=== PATIENT | female | born 1965 | race Caucasian/White ===

== ENCOUNTER 2025-03-09 10:11 | Inpatient (IN) ==
--- NOTE | 2025-03-09 10:21 | Emergency Department Note ---
Impression & Plan Chest pain, ST elevation (STEMI) myocardial infarction ED Provider Note HISTORY OF PRESENT ILLNESS: Patient is a 60-year-old female presenting with chest pain. Patient was alerted as a heart alert prehospital. Patient reportedly was having what felt like indigestion for most of the night. She woke up today and was still having some chest discomfort, but her chest pain significantly worsened acutely while at work about 1 hour prior to arrival. She called 911. On EMS arrival, the patient reportedly was short of breath and diaphoretic. They gave her 324 mg of aspirin, 900 cc of fluid and a total of 150 mcg of IV fentanyl prehospital. On arrival to the ER, the patient reports that her pain is still a 10 out of 10. She describes it as an intense pressure and states it radiates into her back. Denies any history of high blood pressure, high cholesterol or cardiac stents. She does smoke daily. She denies any nausea or vomiting. She is not on any anticoagulation or antiplatelet therapy. ROS: as above PHYSICAL EXAM: Constitutional: Patient appears in no acute distress. HENT: Head: Normocephalic and atraumatic. Eyes: EOMI, PERRL Mouth/Throat: Mucous membranes moist. Neck: Trachea midline. Neck supple. Cardiovascular: RRR, No murmurs, rubs or gallops. Intact distal pulses. Pulmonary/Chest: No respiratory distress. Breath sounds clear and equal bilaterally. No wheezes or rales. Abdominal: Abdomen soft, no tenderness, rebound or guarding. Musculoskeletal: No edema, tenderness or deformity noted. Skin: Warm and dry. No rash, erythema, pallor or cyanosis Psychiatric: Appropriate mood and affect for situation. Neurological: Alert and keenly responsive. CN II-XII grossly intact, moving all extremities equally and fully. MDM: - Vitals signs showed hypertension - History obtained via patient. History as above. - Chronic conditions affecting care: None - Differential diagnoses include, but are not limited to: Acute coronary syndrome; pulmonary embolism; dissection; tension pneumothorax; esophageal rupture; pneumonia - Order placed for continuous cardiac monitoring. At this time, monitor showed rate of 70 bpm with normal sinus rhythm, per my interpretation. - External medical records reviewed. - EKG image transmitted from EMS that was received at 9:47 AM interpreted by myself showed normal sinus rhythm. Rate 76 bpm. Noted have a left bundle b ranch block with significant ST elevations in the lateral leads. Heart alert was called off of this EKG. - Did send EKG to python engineer, Dr. Cárdenas, who presented to bedside on patient's arrival. - EKG image interpreted by myself showed normal sinus rhythm. Rate 89 bpm. QT 398. Noted to have a left bundle branch block. Significant artifact at baseline. Lateral ST elevations have improved slightly from the prehospital EKG. - IV access obtained. Laboratory workup sent. Patient left for the Board Certified Music Therapist prior to chest x-ray being obtained. - Given patient's symptoms and presumed new LBBB, patient taken to optical laboratory technician with python engineer. - Discussed case with hospitalist for admission post optical laboratory technician. - Patient to be [facility] to [facility] after Board Certified Music Therapist. I have personally spent 31 minutes of critical care time in the direct management of this patient. This includes bedside care, interpretation of diagnostic studies, and testing, discussion with consultants, patient, and family members, and other required patient management activities. This 31 minutes is in excess of all separately billable procedures. ASSESSMENT AND PLAN: Diagnosis: chest pain; STEMI Plan: to optical laboratory technician Past Med/Surg History Problem List (Updated 03/09/25 @ 10:29 by Yu Buenrostro MD) ST elevation (STEMI) myocardial infarction (Acute) Chest pain (Acute) Acute [facility] Lumbar radiculopathy Social History Smoking Status: Current every day smoker Tobacco Type: Cigarettes Feels Safe at Home: Yes Results & Data (ED) Vital Signs Vital Signs - 24 hr 03/09/25 10:13 03/09/25 10:17 03/09/25 10:22 Temperature 36.4 C L Temperature Source Oral Pulse Rate 83 Respiratory Rate 22 Respiratory Effort / Characteristics Non-Labored Spontaneous Respiratory Pattern Regular Blood Pressure 190/130 H 190/130 H Blood Pressure Mean 150 155 Oxygen Delivery Method Room Air Room Air Sepsis Recent Fever Within 48 Hours No Sepsis New/Unexplained Change in Mental Status N/A Sepsis Action Taken by Nursing No Action Required 03/09/25 10:23 Temperature Temperature Source Pulse Rate 71 Respiratory Rate Respiratory Effort / Characteristics Respiratory Pattern Blood Pressure Blood Pressure Mean Oxygen Delivery Method Sepsis Recent Fever Within 48 Hours Sepsis New/Unexplained Change in Mental Status Sepsis Action Taken by Nursing Discharge Plan Visit Data Chief Complaint: Heart Alert ED Provider: Polinski,Yu Z. Discharge Problem: Chest pain, ST elevation (STEMI) myocardial infarction Condition: Critical Discharge Instructions Interventions: ED Discharge Assessment Last Done: 03/09/25 10:22
--- NOTE | 2025-03-09 10:26 | Pre Anesthesia Assessment ---
Date of Service March 09, 2025 Pre Sedation Assessment Vital Signs Temp Pulse Resp BP O2 Del Method 03/09/25 10:23 71 03/09/25 10:22 Room Air 03/09/25 10:13 97.5 F L 83 22 190/130 H Room Air Cardiovascular + regular rate Respiratory + respiratory effort normal Pre-Sedation Airway Assessment Smoking Status: Current every day smoker Hx Sleep Apnea: No Hx Difficult Intubation: No Short, Thick Neck: No Thyromental Distance: < 3.5 Finger Breadths Oral Cavity: + Dentures Mallampati Class: III ASA: ASA4 Procedure Planning Contraindications for Sedation: none Current Medications Reviewed: Yes Notes The planned sedation has been discussed with the patient. Informed Consent was obtained. I have identified the patient, determined the appropriateness of sedation and have assessed the patient immediately prior to the procedure. All medicine(s) and interventions are by my order.
--- NOTE | 2025-03-09 10:28 | Cardiology Consultation ---
Date of Consultation March 09, 2025 Assessment & Plan (1) Acute CT: Presentation concerning for anterior STEMI and recommend proceeding with emergent cardiac catheterization and likely primary PCI. No apparent contraindications to procedure. Discussed risks, benefits, alternatives of procedure with patient and they are willing to proceed. Given IV heparin and ticagrelor 180 mg on arrival to the Infant Childcare Provider. Further recommendations pending findings of coronary angiography. History of Present Illness History of Present Illness 60-year-old woman here with acute chest pain and ECG concerning for acute CT. Patient seen emergently in the ED after heart alert activated en route. No prior cardiac history. Cardiac risk factors include ongoing tobacco use and family history of premature CAD (father from [place] at age 43). No other active medical issues. Reports symptoms starting last night that she thought were indigestion. Continued to have symptoms this morning that were unrelieved with Xanax. 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 Describes diffuse chest pain over central chest with associated shortness of breath and diaphoresis. Has never had similar pain in the past. ECG with EMS showed sinus rhythm with left bundle branch block not known to be old and borderline ST elevation in V4 through V6. Chest pain at time of arrival 10/10. Hemodynamically stable. EKG with less pro minent ST elevation but persistent left bundle branch block. Allergies Allergy/AdvReac Type Severity Reaction Status Date / Time Iodinated Contrast Media Allergy Severe Anaphylaxis Verified 03/09/25 13:23 shellfish derived Allergy Severe Anaphylaxis Verified 03/09/25 13:23 Patient History Medical History (Updated 03/09/25 @ 13:42 by Kina Foley PA-C) No pertinent past medical history Surgical History (Updated 03/09/25 @ 13:42 by Kina Foley PA-C) No pertinent past surgical history Social History Smoking Status: Current every day smoker Tobacco Type: Cigarettes Cigarettes Per Day: 0.5 PPD; Do You Dip or Chew Tobacco: No; Hx Alcohol Use: Yes Alcohol type: hard liquor Hx Substance Use: No Communication Ability: Effective Beliefs That Will Affect Care: None Current Living Situation: Spouse Other Information That Helps Us Care for You: No Feels Safe at Home: Yes Safety Concerns: Feels Safe At This Time Assistive Devices: Glasses Review of Systems Review of Systems: Not obtained in the setting emergent situation Physical Exam Physical Exam: General: Uncomfortable, in pain HEENT: Sclerae anicteric Lungs: Clear anteriorly Cardiac: Regular rate, no murmurs Vascular: 2+ radial bilaterally Abdomen: Soft, nontender Extremities: Well perfused, no peripheral edema Neuro: Nonfocal Psych: Alert orient x3 Results & Data Vital Signs (Past 12 Hours) Vital Signs Temp Pulse Resp BP O2 Del Method 03/09/25 10:23 71 03/09/25 10:22 Room Air 03/09/25 10:13 97.5 F L 83 22 190/130 H Room Air PG Care Time/CCT Total # of Minutes Spent Total Time Spent with Patient: Total time spent is greater than 50% in coordination of care (as documented) at patient's floor/unit and/or counseling patient: Coding Level of Care Code 05990 OFFICE CONSULT LVL Diagnoses Acute CT I21.9
[2025-03-09] MEDS: IODIXANOL (VISIPAQUE) 320 MG/ML 100ML IV ONE (11:11)
[2025-03-09] MEDS: NITROGLYCERIN/D5W 100MCG/ML 20ML SYR ONE (11:12)
[2025-03-09] MEDS: niCARdipine 2,000 MCG/20 ML SYR ONE (11:12)
[2025-03-09] MEDS: AMIODARONE 150MG / 100ML D5W (CATH LAB USE ONLY) IV ONE (11:13)
[2025-03-09] MEDS: diphenhydrAMINE 50 MG/ML VIAL ONE (11:13)
[2025-03-09] MEDS: EPTIFIBATIDE 2 MG/ML 10 ML VIAL (CATH LAB USE ONLY) IV ONE ×2 (11:13→11:14)
[2025-03-09] MEDS: TICAGRELOR 90 MG TAB ONE (11:13)
[2025-03-09] MEDS: FAMOTIDINE 20MG/5ML IV PUSH IV ONE (11:13)
[2025-03-09] MEDS: HEPARIN (PORCINE) 1000 UNIT/ML 10 ML (CATH LAB USE ONLY) ONE ×2 (11:15→11:18)
[2025-03-09] MEDS: FUROSEMIDE 40 MG/4 ML VIAL IV ONE ×3 (11:17→13:50)
[2025-03-09] MEDS: OPTIRAY 350 ONE (11:17)
[2025-03-09] MEDS: MIDAZOLAM HCL 1 MG/ML 2ML VIAL ONE (11:18)
[2025-03-09] MEDS ORDERED: ACETAMINOPHEN 325 MG TAB PO PRN (11:37)
[2025-03-09] MEDS ORDERED: ONDANSETRON INJ 2 MG/ML 2 ML VIAL IV PRN (11:37)
--- NOTE | 2025-03-09 11:43 | Post Anesthesia Assessment ---
Date of Service March 09, 2025 Post Sedation Assessment Vital Signs Temp Pulse Resp BP O2 Del Method 03/09/25 10:23 71 03/09/25 10:22 Room Air 03/09/25 10:17 190/130 H 03/09/25 10:13 97.5 F L 83 22 190/130 H Room Air Recovery Score Activity: Moves 4 extremities Respiration: Deep Breath/Cough Circulation: +/-20% PreAnes Value Consciousness: Fully Awake Oxygen Saturation: O2 needed for >90% Discharge Sedation Level of Care: Fast Track Phase II Post Sedation Plan On clinical assessment, the patient appears to have tolerated the sedation without complications. Patient is recovering as anticipated. Patient will continue to be monitored by nursing and may be discharged when sedation discharge criteria are met per below protocol. Upon Completions of procedure up to 15 minutes continue every 5 minute vital signs and the P.A.R. score; then discharge to a Phase I or Fast Track to Phase II per the following guidelines: * Discharge Patient to appropriate Phase II area if PAR is 8 or greater or return to pre- procedure baseline. The post - procedure orders will be as directed. * If PAR score is less than 8 or not return to pre-procedure baseline then patient will follow Phase I monitoring till PAR is reached for Phase II. The Phase I may be done in procedure room or may call to secure a Phase I area. * If naloxone or flumazenil are used for reversal, hold in Phase I for contin ued monitoring from when last reversal dose was given for a minimum of 60 minutes or longer pending the nurse and/or physician discretion of patient condition before discharge to Phase II. Please call the Sedation Physician to re-evaluate and complete post-note for discharge to Phase II area. Do NOT discharge from procedure sedation or Phase 1 until post- sedation evaluation note is complete by procedure /sedation MD Sedation Discharge Instructions to be given to the patient at discharge to home.
--- NOTE | 2025-03-09 11:44 | Post Operative Brief Note ---
Cardiology Brief Post Op Date of Surgery March 09, 2025 Pre & Post Diagnosis Operation Date: 03/09/25 10:15 <No data on this case meets the specified criteria> Procedure Cardiac catheterization PCI of mid LAD with single drug-eluting stent (3.0 x 38 mm Elliot; postdilated with 4.0 NC). Assistant Dean Of Students Williams Cárdenas MD [employer] Estimated Blood Loss 20 Findings See Below 100% acute mid LAD at bifurcation with large second diagonal. Successfully tr eated with single drug-eluting stent. Complications none Disposition Disposition: Surgical ICU
--- NOTE | 2025-03-09 12:59 | History & Physical Report ---
Date of Service March 09, 2025 Assessment & Plan (1) ST elevation (STEMI) myocardial infarction: (2) Chest pain: (3) HTN (hypertension): (4) T2DM (type 2 diabetes mellitus): Plan This is a 60-year-old female who does not have a known past medical history prior to presentation who presented to ED with chest pain. Patient reports substernal, "heartburn," that started last evening and most of the night last night. Patient presented as a heart alert with evidence of new LBBB and mild ST elevation V4-V6. Pt received 324mg asa and loaded with brilinta, IV Heparin. S/P cardiac cath with severe CAD and single RASHAD to LAD. Post op course complicated by NSVT s/p Amiodarone bolus and elevated intracardiac pressures s/p IV Lasix 40mg. Started on ASA, High intensity atorvastatin, lisinopril and metoprolol tartrate. Pantoprazole for GI ppx pt still significantly hypertensive, will give additional Lasix 40mg IV obtain resting echocardiogram, trend trops til peaks, lipid panel and a1c in a.m. 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 consult stitch separator, will need counseling to reduce risk of cardiovascular events #Thrombocytopenia plt ct 58, monitor closely given antiplatelet therapy repeat cbc with next trop, no other labwork #Tobacco abuse: strongly encourage cessation for risk factor reduction, smokes 1ppd, will defer nicotine patch to cardiology given significant hypertension/tachycardia #DVT ppx: scds for now FULL CODE PCP: Heron Barrow PABirgit Disposition: admitted to ICU Pt was seen and examined in collaboration with Dr. Murray, please see addendum I spent a total of 76 minutes coordinating, documenting and providing care for this patient excluding time spent in the performance of separately billed services or time spent by another provider/QHP. Admission and Anticipated Discharge Date Admission Date: March 09, 2025 History of Present Illness Chief Complaint: "Burning in chest that started evening prior." Primary Care Provider: Heron Barrow This is a 60-year-old female who does not have a known past medical history prior to presentation who presented to ED with chest pain. Patient reports substernal, "heartburn," that started last evening and most of the night last night. When she woke up this morning she was still having some chest discomfort. She opted to go to work and while at work her chest pain became significantly worse and she became short of breath and diaphoretic. At this time 911 was called. She was made a heart alert upon arrival. She received 324 mg of aspirin, 150 mcg of fentanyl and 900 cc of IV fluid prehospital. Prehospital EKG with what appeared to be new left bundle branch block. She was seen and evaluated by interventional cardiology in ED and taken to Cardiac Curtain Stitcher. She received Brilinta and IV heparin in ED. she was found to have 100% acute mid LAD lesion at the bifurcation with large second diagonal treated with a single drug-eluting stent. Postcardiac cath was complicated by hypertension treating with IV lasix. During my evaluation in the ICU pt reports continued SOB. She is requiring oxygen. She also has mild residual chest pain. Denies f/c/s, dizziness, lightheaded, n/v/abd pain. Allergies Allergy/AdvReac Type Severity Reaction Status Date / Time Iodinated Contrast Media Allergy Severe Anaphylaxis Verified 03/09/25 13:23 shellfish derived Allergy Severe Anaphylaxis Verified 03/09/25 13:23 Past Med/Surg History Problem List (Updated 03/09/25 @ 13:59 by Kina Foley PA-C) T2DM (type 2 diabetes mellitus) HTN (hypertension) ST elevation (STEMI) myocardial infarction (Acute) Chest pain (Acute) Acute [place] Lumbar radiculopathy Medical History (Updated 03/09/25 @ 13:59 by Kina Foley PA-C) No pertinent past medical history Surgical History (Updated 03/09/25 @ 13:42 by Kina Foley PA-C) No pertinent past surgical history Family History (Updated 03/09/25 @ 13:42 by Kina Foley PA-C) Father Coronary heart disease massive SC in 40s Social History (Updated 03/09/25 @ 13:43 by Kina Foley PA-C) Smoking Status: Current every day smoker Tobacco Type: Cigarettes Cigarettes Per Day: 1 ppd; Do You Dip or Chew Tobacco: No; Hx Alcohol Use: Yes Alcohol type: hard liquor Alcohol Intake Frequency: Monthly or Less Hx Substance Use: No Communication Ability: Effective Beliefs That Will Affect Care: Roman Catholic Current Living Situation: Spouse Other Information That Helps Us Care for You: No Feels Safe at Home: Yes Safety Concerns: Feels Safe At This Time Assistive Devices: Glasses Review of Systems Review of Systems: All systems reviewed & are unremarkable except as noted in HPI & below Physical Exam Physical Exam: Constitutional: WD/WN, obese, vitals as above, NAD, sitting up in bed, conversing easily Head: Normocephalic, Atraumatic Eyes: PERRL, conjunctivae normal, anicteric sclerae ENMT: external ear and nose normal, oropharynx normal dry membranes Neck: trachea midline, no thyromegaly normal visual inspection Respiratory: normal respiratory effort, lungs clear to auscultation but diminished at based, no wheeze, rales, rhonchi. 2L of O2 Cardiovascular: RRR, no murmur, no edema, RUE Radial band intact, cap refill intact, dusky hand, Vessels: no JVD or carotid bruit Chest: normal inspection of chest Abdomen: normal bowel sounds, soft, nontender, no hepatosplenomegaly Musculoskeletal: no cyanosis or clubbing, extremities motor strength 5/5 Skin: no rashes, warm and dry normal turgor Neurologic: PERRL, EOMI, accommodation nl, no face palsy, no dysarthria CN's II-XI intact bilaterally and moves all extremities Psychiatric: A+Ox3, euthymic affect Results & Data Results & Data Vital Signs (Past 12 Hours) Vital Signs Temp Pulse Resp BP O2 Del Method 03/09/25 12:10 110 H 03/09/25 10:23 71 03/09/25 10:22 Room Air 03/09/25 10:17 190/130 H 03/09/25 10:13 36.4 C L 83 22 190/130 H Room Air Laboratory Results I have independently reviewed and interpreted patient's admitting labs including CBC, CMP, PTT, PT/INR, mag and troponin. Diagnostic Findings Chest X-Ray 03/09/25 12:54 XR chest 1V portable CLINICAL HISTORY: sob COMPARISON STUDY: None FINDINGS: Heart size and pulmonary vasculature are normal. Lungs are hyperexpanded. No consolidation or pleural effusion seen. No pneumothorax. IMPRESSION: No pneumonia seen. ACT 112: Negative or not required by law. Electronically signed by: Tj Knox M.D. 03/09/2025 1:23 PM Medications Administered Current Inpatient Medications Acetaminophen (Acetaminophen 325 Mg Tab) 650 mg PO Q4H PRN PRN Reason: MILD Pain (Scale 1,2,3) Stop: 04/08/25 11:36 Aspirin ([facility]spirin 81 Mg Ectab) [facility] [place]: 04/09/25 08:59 Atorvastatin Calcium (Atorvastatin 40 Mg Tab) [facility] [place] Stop: 04/09/25 08:59 Insulin Human Regular 250 (units/ Sodium Chloride) 250 mls @ 0 mls/hr IV .Q0M [facility]; Protocol Stop: 04/08/25 13:44 Insulin Aspart (Insulin Aspart Per Unit Charge) 0 units SC [facility] Stop: 04/08/25 16:29 Lisinopril (Lisinopril 5 Mg Tab) [facility] [place] Stop: 04/09/25 08:59 Metoprolol Tartrate (Metoprolol Tartrate 25 Mg Tab) 12.5 mg PO TID [facility] Stop: 04/08/25 13:59 Miscellaneous (Icu Protocol For Hyperglycemia) 1 each N/A [facility] Stop: 03/11/25 16:29 Ondansetron HCl (Ondansetron Inj 2 Mg/Ml 2 Ml Vial) 4 mg IV Q6H PRN PRN Reason: Nausea And Vomiting Stop: 04/08/25 11:36 Pantoprazole Sodium (Pantoprazole 40 Mg Tab) 40 mg PO QAM [facility] Stop: 04/09/25 08:59 Ticagrelor (Ticagrelor 90 Mg Tab) 90 mg PO BID [facility] Stop: 04/08/25 20:59 ECG Additional Comments: I have independently reviewed and interpreted patient's admitting EKG which revealed:sinus tach, 104, LBBB Code Status & VTE Plan Code Status FULL CODE VTE Prophylaxis Plan VTE Prophylaxis will be ordered: No Supervising Physician Co-Signing Physician Notes Attending addendum: The patient was seen and examined in ICU in presence of the family members She is a 60 years old female without significant past medical history was admitted with chest pain and shortness of breath and noted to have acute ST elevation SC Underwent emergent cardiac cath and the LAD stent was placed Denies any significant symptoms following the procedure in ICU On examination Lying in bed without any acute distress Hemodynamically stable with blood pressure on the upper side is 161/86 and pulse 98 Chestclear to auscultate bilaterally HeartS1, S2 regular Abdomenbenign Extremitiesno edema CNSalert, awake and oriented x 3 no focal sensory or motor deficit appreciated Her admission labs, EKG imaging studies and cardiac cath report reviewed ST elevation SC status post cardiac cath and LAD stent placement Other medical conditions includeing diabetes and hypertension remain stable Appreciate cardiology input and recommendation Agree with assessment and plan as outlined above by Coty Foley PA-C and take the full responsibility of care in the hospital Dr Randall Murray
--- NOTE | 2025-03-09 13:25 | XRay Report ---
XR chest 1V portable CLINICAL HISTORY: sob COMPARISON STUDY: None FINDINGS: Heart size and pulmonary vasculature are normal. Lungs are hyperexpanded. No consolidation or pleural effusion seen. No pneumothorax. IMPRESSION: No pneumonia seen. ACT 112: Negative or not required by law. Electronically signed by: Tj Knox M.D. 03/09/2025 1:23 PM
[2025-03-09 13:30] LABS: Alanine Aminotransferase 17.0 U/L (7-52); Albumin Globulin Ratio 1.3 (0.9-2); Alkaline Phosphatase 116.0 U/L (34-104); Anion Gap 11.0 (3-11); Bilirubin,Total 0.3 mg/dl (0.2-1.0); Blood Urea Nitrogen 12.0 mg/dl (6-23); Calcium 8.9 mg/dl (8.6-10.3); Carbon Dioxide 23.0 mmol/L (21-32); Chloride 100.0 mmol/L (98-107); Creatine Kinase 120.0 U/L (26-192); Creatinine Clr Calc Pharmacy 74.7 ml/min; Globulin 3.2 gm/dl (2.5-4.0); Glucose 323.0 mg/dl (70-99(Fasting)); Lipase 159.0 U/L (11-82); Magnesium 1.7 mg/dl (1.7-2.4); Potassium 4.2 mmol/L (3.5-5.1); Sodium 134.0 mmol/L (136-145); Total Protein 7.4 gm/dl (6.0-8.3)
[2025-03-09 13:34] LABS: Hematocrit (blood only) 44.8 % (37.0-47.0); Hemoglobin 14.8 g/dl (12.0-16.0); Immature Granulocytes # (auto) 0.19 K/uL (0.01-0.20); Immature Granulocytes % (auto) 0.9 %; Mean Corpuscular Hemoglobin 28.6 pg (25.0-34.0); Mean Corpuscular Volume 86.5 fL (80.0-100.0); Platelet Count 58 K/uL (130-400); RDW Standard Deviation 41.6 fL (36.4-46.3); Red Blood Count 5.18 M/uL (4.20-5.40); White Blood Count 20.22 K/ul (4.8-10.8)
[2025-03-09 13:40] LABS: Thyroid Stimulating Hormone 4.256 uIu/ml (0.300-4.500)
[2025-03-09] MEDS ORDERED: INSULIN REGULAR 250 UNITS in SODIUM CHLORIDE 0.9% 247.5 ML IV SCH (13:45)
--- NOTE | 2025-03-09 13:46 | Cardiac Catheterization ---
[facility] Data: Machine Trimmer Cardiac Status Clinical evaluation leading to the procedure CAD Presenation: STEMI Anginal Classification: CCS IV Diagnostic Physicians Name: Williams Cárdenas MD Closure Device Recommendations: PCI without planned CABG Cardiac Cath Procedure Full Procedure Date March 09, 2025 Pre-Procedure Diagnosis Pre-Procedure Diagnosis: STEMI AUC Score AUC Score: 9 Post-Procedure Diagnosis Post-Procedure Diagnosis: Severe CAD, Successful PCI and Elevated Intracardiac Pressures Procedure(s) Performed Procedure(s) Performed: Coronary Angiography, Left Heart Cath, Drug Eluting Stent and IVUS Legal Receptionist Williams Cárdenas MD Survey Research Manager(s) Showers Estimated Blood Loss Estimated Blood Loss: 25 Medication(s) Medication(s): Aspirin, Fentanyl, Heparin, Integrilin, Lidocaine 1%, Nicardipine, Nitroglycerin and Versed Medication(s): Amiodarone Summary of Findings Indication: STEMI/Heart Alert Access: 6 Fr slender right radial artery Catheters: EBU 3.5 guide, diagnostic JR4 Findings: LM -normal caliber, no significant disease LAD -large caliber, diffuse proximal disease prior to acute earlymid subtotal occlusion just prior to large D2. Small bifurcating D1 with 60% proximal dis ease. D2 with 40-50% mid segment disease. Mid to distal LAD after flow reestablished small caliber and wraps around apex Circumflex -medium caliber, 50-60% distal stenosis extending into left PLB. Small OM1 with luminal irregularities. LPLB no significant disease RCA -medium caliber, dominant, mid segment luminal irregularities. 30-40% proximal small RPDA. -- PCI -- Antithrombotic therapy: Heparin, ticagrelor Procedure: Left main cannulated with EBU 3.5 guide BMW wire passed across lesion into distal LAD vessel Straightedge Worker 50 wire placed into second diagonal Mid LAD lesion predilated with 2.5 compliant balloon After flow reestablished had increased NSVT and was loaded with amiodarone Pham IVUS catheter placed to mid LAD. Pullback revealed severe diffuse disease extending beginning in mid segment and extending across takeoff of D2, D1 back in the proximal LAD almost ostium. Left main without significant disease. Dilated lesion stented with 3.0 x 38 mm Elliot drug-eluting stent from proximal LAD across D2 Stent post-dilated with 4.0 noncompliant balloon IC vasodilators administered for spasm Residual haziness/thrombus noted in midportion of stent on angiography and IVUS. No apparent edge complications on IVUS Stent further postdilated and midportion with 4.0 NC to high atmospheres and IC bolus Integrilin administered. Post procedure ANAID 3 flow, stent well expanded with minimal residual stenosis. Jailed D1 with severe ostial stenosis but ANAID-3 flow. ANAID-3 flow in D2. Post procedure LVEDP -35 Arterial Closure: TR band Summary: 1. Acute MIsubtotal earlymid LAD occlusion 2. Mild to moderate non-culprit coronary artery disease - 50-60% distal circumflex 60% small proximal D1, 40-50% mid D2 30-40% proximal small RPDA 3. Elevated intracardiac filling pressure (LVEDP 35) 4. Successful PCI of proximal to mid LAD with single drug-eluting stent (3.0 x 38 mm [place]; postdilated with 4.0 NC). Recommendations: Admit to ICU for continued monitoring Loaded with ticagrelor 180 mg in Machine Trimmer Given IV Lasix 40 mg x 1 in Machine Trimmer, further diuresis as needed for symptoms Continue dual-antiplatelet therapy for at least 1 year. Trend troponins until peak, Check Echo Uptitrate beta-alivia/KARIME as BP allows High-dose statin Medical management of residual nonobstructive CAD. Hemodynamics Rest Ao:: 186/108/145 Final Ao: 140/29/106 LV: 138/35 Recommendations Recommendations: PCI without planned CABG Radiation Exposure (mGy) 1967 Contrast (mls) 140 Anesthesia Moderate 3952-8702 Procedural Complication(s) None Disposition ICU I attest to the content of the Intraoperative Record and any orders documented therein. Any exceptions are noted below. [facility] Card Cath Procedure Codes Cardiac Catheterization Procedure 1: Cardiovascular Cath Procedures: 66101 Coronaries and LHC (+/-LV) Therapeutic Services & Ancillary Procedure 1: Cardiovascular Tx and Anc Procedures: 10248 IV Ultrasound (Coronary or Graft) Moderate Sedation Procedure 1: Sedation/Anesthesia: 32016 Mod Sedation by the same physician;Init15 Min Child Age 5 & Up Procedure 2: Sedation/Anesthesia: 45408 Mod Sedation by the same physician; Ea [id number] Minutes Stenting Procedure 1: Cardiovascular Stent Procedures: 35213 Perc transluminal revascularization of acute sub/total occl, aMI PG Care Time/CCT Total # of Minutes Spent Total Time Spent with Patient: Total time spent is greater than 50% in coordination of care (as documented) at patient's floor/unit and/or counseling patient:
[2025-03-09] MEDS: ATORVASTATIN 40 MG TAB PO STA (13:48)
[2025-03-09 13:50] LABS: INR 1.0 (0.9-1.1); Prothrombin Time 11.2 Seconds (9.0-12.0)
[2025-03-09 13:54] LABS: Partial Thromboplastin Time 120 Seconds (21-31)
[2025-03-09] MEDS: METOPROLOL TARTRATE 25 MG TAB PO SCH (14:05)
[2025-03-09] MEDS ORDERED: GLUCAGON FOR INJ 1 MG VIAL SQ PRN (14:15)
[2025-03-09] MEDS ORDERED: DEXTROSE 50% 50 ML SYRINGE IV PRN (14:15)
[2025-03-09] MEDS ORDERED: GLUCOSE 10 TAB/TUBE PO PRN (14:15)
[2025-03-09] MEDS ORDERED: GLUCOSE 40% GEL 15 GM TUBE PO PRN (14:15)
[2025-03-09] MEDS ORDERED: CARBOHYDRATES FOR HYPOGLYCEMIA PO PRN (14:15)
[2025-03-09] MEDS: INSULIN REGULAR 250 UNITS in SODIUM CHLORIDE 0.9% 247.5 ML IV SCH (14:33)
[2025-03-09] MEDS: NovoLIN-R BOLUS FROM BAG IV ONE (14:34)
--- NOTE | 2025-03-09 14:38 | Critical Care Consultation ---
Date of Consultation March 09, 2025 Assessment & Plan (1) T2DM (type 2 diabetes mellitus): (2) HTN (hypertension): (3) ST elevation (STEMI) myocardial infarction: (4) Chest pain: (5) Acute SC: (6) Thrombocytopenia: (7) Smoker: Plan Michelle Dejesus is a 60-year-old female with no known past medical history who presented to [facility] on 03/09/2025 with complaints of chest pain and b/l arm tingling found to have ST elevations in V4-V6 with new LBBB s/p PCI with RASHAD to LAD. Neuro: -No acute issues -No head imaging at this time. -Monitor CV: Anteriolateral STEMI; Acute myocardial infarction s/p RASHAD to LAD -ST elevations V4-V6 and new LBBB -Troponin 355 ->1188 -PCI w/ long RASHAD to LAD -Post intervention NSVT bolused with amiodarone -Lipid panel pending. Cont high dose atorvastatin. -Cont ASA and brilinta -TTE pending -Started on lisinopril and metoprolol -Diuresed with lasix x 2 due to elevated intracardiac pressure. -Cardiology following. Pulm: Current everyday smoky -Discussed importance of smoking cessation and resources offered -Patient wheezing on exam. Will order albuterol PRN GI: FEN -Initiate heart healthy diet : -No acute issues -Creatinine 0.89 -BUN 12 -Monitor renal function qam Heme: Thrombocytopenia unclear etiology -Plts 58 on admission -No hematological history -Consider peripheral smear and further workup. -Monitor CBC qam. Endo: Stress hyperglycemia; Diabetes Mellitus Type II -BG 323 -Initiate ICU insulin gtt -Hgba1c pending -Skip Tracer consulted. ID: Leukocytosis likely reactive in setting of acute SC -WBC 20 -Afebrile -Monitor and culture as appropriate. Prophylaxis: -SCD for mechanical DVT prophylaxis -DVT chemoprophylaxis held at this time. -PP for GI prophylaxis Disposition: ICU for evaluation and management of anterolateral STEMI s/p PCI with ES to LAD. Patient is full code. Patient and updated at bedside by ICU provider on 03/09/2025. I have personally spent 45 minutes of critical care time in the direct management of this patient. This is a life/limb threatening event. This includes time spent evaluating patient, direct bedside care, chart review, placing orders, interpretation of diagnostic studies, discussion with consultants, patient, and/or family members regarding treatment decisions, as well as other required patient management activities. This time is exclusive of all separately billable procedures, and teaching time and separate from and in addition to any other critical care service time. History of Present Illness Reason for Consultation: STEMI s/p PCI with RASHAD to LAD Attending Physician: Santi Guidry MD History of Present Illness Michelle Dejesus is a 60-year-old female with no known past medical history who presented to [facility] on 03/09/2025 with complaints of chest pain and b/l arm tingling. Patient states that her symptoms started on the evening of 03/08/2025 with indigestion. She awoke this am with chest pain and bilateral arm tingling. Upon arrival a heart alert was initiated. EKG showed ST elevations in V4-V6 and a new LBBB. Patient given 325 mg of aspirin, Brilinta l oad, and started on a heparin gtt. Patient taken to hospital laboratory technician where a long RASHAD was placed to the LAD. Post procedure the patient was ntoed to have NSVT and was bolused with amio. Given elevated intracardiac pressures she was also diuresed with 40mg of IV lasix. Patient taken to the ICU post proecedure for continued evaluation and management. Allergies Allergy/AdvReac Type Severity Reaction Status Date / Time Iodinated Contrast Media Allergy Severe Anaphylaxis Verified 03/09/25 13:23 shellfish derived Allergy Severe Anaphylaxis Verified 03/09/25 13:23 Patient History Medical History (Updated 03/09/25 @ 16:42 by SANDEEP Lee) No pertinent past medical history Surgical History (Updated 03/09/25 @ 13:42 by Kina Foley PA-C) No pertinent past surgical history Family History (Updated 03/09/25 @ 13:42 by Kina Foley PA-C) Father Coronary heart disease massive SC in 40s Social History (Updated 03/09/25 @ 13:43 by Kina Foley PA-C) Smoking Status: Current every day smoker Tobacco Type: Cigarettes Cigarettes Per Day: 1 ppd; Do You Dip or Chew Tobacco: No; Hx Alcohol Use: Yes Alcohol type: hard liquor Alcohol Intake Frequency: Monthly or Less Hx Substance Use: No Communication Ability: Effective Beliefs That Will Affect Care: Sabianist Current Living Situation: Spouse Feels Safe at Home: Yes Assistive Devices: Glasses Review of Systems Review of Systems: All systems reviewed & are unremarkable except as noted in HPI & below Physical Exam Physical Exam: VITALS: Reviewed. WEIGHT/BMI reviewed. GEN: Healthy appearing, well-developed, NAD. PSYCH: Good Judgment. AOx3. Normal memory, mood, and affect. HEENT -Head: NC/AT; -Eyes: PERRL, EOMI. No discharge or redn ess; -Ears: External ears are normal. Normal TMs. -Nose: Normal nares. -Mouth and throat: MMM. Normal gums, muc estela, palate,. Good dentition. NECK: Supple, with no masses. CV: RRR, no m/r/g. LUNGS: Clear in bilateral upper and lower lobes with some wheezing noted. Chest rise symmetrical, Breathing mildly labored. ABD: Soft, NT/ND, NBS, no masses or organomegaly. : N/A SKIN: Warm, well perfused. No skin rashes or abnormal lesions. MSK: No deformities, Normal gait. EXT: No clubbing, cyanosis, or edema. NEURO: Ambulating with no limitations. Normal muscle strength and tone. No focal deficits. Results & Data Results & Data Vital Signs (Past 12 Hours) Vital Signs Temp Pulse Resp BP BP Pulse Ox O2 Del Method 03/09/25 14:12 98 H 30 H 98 Nasal Cannula 03/09/25 13:54 96 H 22 96 03/09/25 13:45 94 H 26 H 99 03/09/25 13:39 161/86 H 03/09/25 13:27 90 25 H 99 03/09/25 13:24 142/106 H 03/09/25 13:15 98 H 24 99 Nasal Cannula 03/09/25 13:09 155/117 H 03/09/25 13:06 95 H 23 100 03/09/25 13:00 93 H 17 100 03/09/25 12:54 162/111 H 03/09/25 12:54 92 H 22 97 03/09/25 12:36 Nasal Cannula 03/09/25 12:36 36.4 C L 24 173/93 H 92 Nasal Cannula 03/09/25 12:30 107 H 25 H 99 03/09/25 12:24 162/104 H 03/09/25 12:10 110 H 03/09/25 12:09 112 H 26 H 98 03/09/25 10:23 71 03/09/25 10:22 Room Air 03/09/25 10:17 190/130 H 03/09/25 10:13 36.4 C L 83 22 190/130 H Room Air O2 Flow Rate FiO2 03/09/25 14:12 2 03/09/25 13:54 03/09/25 13:45 03/09/25 13:39 03/09/25 13:27 03/09/25 13:24 03/09/25 13:15 2 03/09/25 13:09 03/09/25 13:06 03/09/25 13:00 03/09/25 12:54 03/09/25 12:54 03/09/25 12:36 2 03/09/25 12:36 2 03/09/25 12:30 03/09/25 12:24 03/09/25 12:10 03/09/25 12:09 03/09/25 10:23 03/09/25 10:22 03/09/25 10:17 03/09/25 10:13 Critical Care Results & Data Vital Signs (Past 12 Hours) Vital Signs Temp Pulse Resp BP BP Pulse Ox O2 Del Method 03/09/25 14:12 98 H 30 H 98 Nasal Cannula 03/09/25 13:54 96 H 22 96 03/09/25 13:45 94 H 26 H 99 03/09/25 13:39 161/86 H 03/09/25 13:27 90 25 H 99 03/09/25 13:24 142/106 H 03/09/25 13:15 98 H 24 99 Nasal Cannula 03/09/25 13:09 155/117 H 03/09/25 13:06 95 H 23 100 03/09/25 13:00 93 H 17 100 03/09/25 12:54 162/111 H 03/09/25 12:54 92 H 22 97 03/09/25 12:36 Nasal Cannula 03/09/25 12:36 36.4 C L 24 173/93 H 92 Nasal Cannula 03/09/25 12:30 107 H 25 H 99 03/09/25 12:24 162/104 H 03/09/25 12:10 110 H 03/09/25 12:09 112 H 26 H 98 03/09/25 10:23 71 03/09/25 10:22 Room Air 03/09/25 10:17 190/130 H 03/09/25 10:13 36.4 C L 83 22 190/130 H Room Air O2 Flow Rate FiO2 03/09/25 14:12 2 03/09/25 13:54 03/09/25 13:45 03/09/25 13:39 03/09/25 13:27 03/09/25 13:24 03/09/25 13:15 2 03/09/25 13:09 03/09/25 13:06 03/09/25 13:00 03/09/25 12:54 03/09/25 12:54 03/09/25 12:36 2 03/09/25 12:36 2 03/09/25 12:30 03/09/25 12:24 03/09/25 12:10 03/09/25 12:09 03/09/25 10:23 03/09/25 10:22 03/09/25 10:17 03/09/25 10:13 Lab & Micro Results (Past 24 Hours) RBC 4.97 M/uL (4.20-5.40) 03/10/25 WBC 16.21 K/ul (4.8-10.8) H 03/10/25 Hgb 14.6 g/dl (12.0-16.0) 03/10/25 Hct 42.3 % (37.0-47.0) 03/10/25 MCV 85.1 fL (80.0-100.0) 03/10/25 MCH 29.4 pg (25.0-34.0) 03/10/25 MCHC 34.5 g/dL (32.0-36.0) 03/10/25 RDW Standard Deviation 42.1 fL (36.4-46.3) 03/10/25 RDW Coefficient of Variation 13.5 % (11.5-14.5) 03/10/25 Plt Count 194 K/uL (130-400) 03/10/25 MPV 10.5 fL (9.4-12.4) 03/10/25 Neutrophils (%) (Auto) 65.3 % 03/10/25 Lymphocytes (%) (Auto) 24.5 % 03/10/25 Monocytes # (Auto) 1.42 K/uL (0.11-0.59) H 03/10/25 Eosinophils # (Auto) 0.11 K/uL (0.00-0.50) 03/10/25 Immature Granulocyte % (Auto) 0.4 % 03/10/25 Neutrophils # (Auto) 10.59 K/uL (1.40-6.50) H 03/10/25 Lymphocytes # (Auto) 3.97 K/uL (1.20-3.40) H 03/10/25 Monocytes # (Auto) 1.42 K/uL (0.11-0.59) H 03/10/25 Eosinophils # (Auto) 0.11 K/uL (0.00-0.50) 03/10/25 Basophils # (Auto) 0.05 K/uL (0.00-0.20) 03/10/25 Immature Granulocyte # (Auto) 0.07 K/uL (0.01-0.20) 5 Na 138 mmol/L (136-145) 03/10/25 K 3.5 mmol/L (3.5-5.1) 03/10/25 Cl 103 mmol/L (98-107) 03/10/25 CO2 26 mmol/L (21-32) 03/10/25 Anion Gap 9 (3-11) 03/10/25 BUN 12 mg/dl (6-23) 03/10/25 Creatinine 0.90 mg/dl (0.6-1.2) 03/10/25 BUN/Creatinine Ratio 13.3 (10-20) 03/10/25 Glu 122 mg/dl (70-99(Fasting)) H 03/10/25 Ca 9.2 mg/dl (8.6-10.3) 03/10/25 Total Bilirubin 0.3 mg/dl (0.2-1.0) 03/09/25 AST 17 U/L (13-39) 03/09/25 ALT 17 U/L (7-52) 03/09/25 Alkaline Phosphatase 116 U/L (34-104) H 03/09/25 TP 7.4 gm/dl (6.0-8.3) 03/09/25 Albumin 4.2 gm/dl (3.4-5.0) 03/09/25 Globulin 3.2 gm/dl (2.5-4.0) 03/09/25 Albumin/Globulin Ratio 1.3 (0.9-2) 03/09/25 Mg 1.8 mg/dl (1.7-2.4) 03/10/25 04:37 Calcium Level 9.2 mg/dl (8.6-10.3) 03/10/25 04:37 Prothromb Time International Ratio 1.0 (0.9-1.1) 03/09/25 12:4 7 Diagnostic Findings (Past 24 Hours) Chest X-Ray 03/09/25 12:54 XR chest 1V portable CLINICAL HISTORY: sob COMPARISON STUDY: None FINDINGS: Heart size and pulmonary vasculature are normal. Lungs are hyperexpanded. No consolidation or pleural effusion seen. No pneumothorax. IMPRESSION: No pneumonia seen. ACT 112: Negative or not required by law. Electronically signed by: Tj Knox M.D. 03/09/2025 1:23 PM I & O Totals 24 Hours 03/08/25 03/09/25 03/10/25 06:59 06:59 06:59 Output Total 600 / 600 Balance -600 / -600 Cumulative 03/09/25 09:56 thru 03/09/25 14:10 Output Total 600 Balance -600 RT Ventilator Mngmt (Last Documented) Ventilator Ordered Settings Respiratory Rate 30 03/09/25 14:12 Fraction of Inspired Oxygen 2 03/09/25 12:36 Ventilator - PT Measurements Respiratory Rate 30 Coding Level of Care Code 19487 CRITICAL CARE 1ST 30-74M Diagnoses T2DM (type 2 diabetes mellitus) E11.9 HTN (hypertension) I10 ST elevation (STEMI) myocardial infarction I21.3 Chest pain R07.9 Acute SC I21.9 Thrombocytopenia D69.6 Smoker F17.200
[2025-03-09] MEDS: INSULIN PROTOCOL GOAL RANGE ONE (15:02)
--- NOTE | 2025-03-09 15:07 | Electrocardiogram Report ---
Test Reason : Blood Pressure : */* mmHG Vent. Rate : 89 BPM Atrial Rate : 89 BPM P-R Int : 152 ms QRS Dur : 130 ms QT Int : 398 ms P-R-T Axes : 75 -27 97 degrees QTcB Int : 484 ms Normal sinus rhythm Left bundle branch block Abnormal ECG No previous ECGs available Confirmed by Michael Davidson ([id number]) on 03/09/2025 3:07:30 PM Referred By: Confirmed By: Michael Davidson
--- NOTE | 2025-03-09 15:08 | Electrocardiogram Report ---
Test Reason : Blood Pressure : */* mmHG Vent. Rate : 104 BPM Atrial Rate : 104 BPM P-R Int : 142 ms QRS Dur : 134 ms QT Int : 356 ms P-R-T Axes : 77 -12 118 degrees QTcB Int : 468 ms Sinus tachycardia Left bundle branch block Abnormal ECG When compared with ECG of 09-Mar-2025 10:15, (unconfirmed) T wave inversion more evident in Lateral leads Confirmed by Michael Davidson ([id number]) on 03/09/2025 3:08:40 PM Referred By: Confirmed By: Michael Davidson
[2025-03-09] MEDS: STAT IV Infusion **Titration per Protocol STA (15:37)
[2025-03-09] MEDS: INSULIN ASPART PER UNIT CHARGE SC SCH (16:33)
[2025-03-09] MEDS ORDERED: ALBUT/IPRATROP 3MG/0.5MG NEB 3 ML VIAL NEB PRN (16:43)
[2025-03-09 17:14] LABS: Hematocrit (blood only) 44.2 % (37.0-47.0); Hemoglobin 15.1 g/dl (12.0-16.0); Mean Corpuscular Hemoglobin 29.1 pg (25.0-34.0); Mean Corpuscular Volume 85.2 fL (80.0-100.0); Platelet Count 193 K/uL (130-400); RDW Standard Deviation 41.3 fL (36.4-46.3); Red Blood Count 5.19 M/uL (4.20-5.40); White Blood Count 17.28 K/ul (4.8-10.8)
[2025-03-09] MEDS ORDERED: Nursing to Pharmacy Communication SCH (19:30)
[2025-03-09] MEDS: TICAGRELOR 90 MG TAB PO SCH (20:37)
--- NOTE | 2025-03-09 21:53 | XCELERA ---
[id number]
[2025-03-10 05:06] LABS: Hematocrit (blood only) 42.3 % (37.0-47.0); Hemoglobin 14.6 g/dl (12.0-16.0); Immature Granulocytes # (auto) 0.07 K/uL (0.01-0.20); Immature Granulocytes % (auto) 0.4 %; Mean Corpuscular Hemoglobin 29.4 pg (25.0-34.0); Mean Corpuscular Volume 85.1 fL (80.0-100.0); Platelet Count 194 K/uL (130-400); RDW Standard Deviation 42.1 fL (36.4-46.3); Red Blood Count 4.97 M/uL (4.20-5.40); White Blood Count 16.21 K/ul (4.8-10.8)
[2025-03-10 05:21] LABS: Anion Gap 9.0 (3-11); Blood Urea Nitrogen 12.0 mg/dl (6-23); Calcium 9.2 mg/dl (8.6-10.3); Carbon Dioxide 26.0 mmol/L (21-32); Chloride 103.0 mmol/L (98-107); Cholesterol 215.0 mg/dl (0-200); Creatinine Clr Calc Pharmacy 73.9 ml/min; Glucose 122.0 mg/dl (70-99(Fasting)); HDL Cholesterol 43.0 mg/dl; Lipase 29.0 U/L (11-82); Magnesium 1.8 mg/dl (1.7-2.4); Potassium 3.5 mmol/L (3.5-5.1); Sodium 138.0 mmol/L (136-145); Triglycerides 149.0 mg/dl (0-150)
[2025-03-10] MEDS: POTASSIUM CHLORIDE 20 MEQ/15 ML UDC PO STA (06:43)
[2025-03-10] MEDS: ASPIRIN 81 MG ECTAB PO SCH (07:54)
[2025-03-10] MEDS: ATORVASTATIN 40 MG TAB PO SCH (07:54)
[2025-03-10 07:59] LABS: Hemoglobin A1C 7.7 % (4.5-5.6)
[2025-03-10] MEDS: POTASSIUM CHLORIDE CRTAB 20 MEQ TABCR PO STA (08:03)
--- NOTE | 2025-03-10 09:10 | Critical Care Progress Note ---
Date of Service March 10, 2025 Assessment & Plan (1) T2DM (type 2 diabetes mellitus): (2) HTN (hypertension): (3) ST elevation (STEMI) myocardial infarction: (4) Chest pain: (5) Acute [place]: (6) Thrombocytopenia: (7) Smoker: Plan Michelle Dejesus is a 60-year-old female with no known past medical history who presented to [facility] on 03/09/2025 with complaints of chest pain and b/l arm tingling found to have ST elevations in V4-V6 with new LBBB s/p PCI with RASHAD to LAD. Neuro: -No acute issues -No head imaging at this time. -Monitor CV: Anteriolateral STEMI; Acute myocardial infarction s/p RASHAD to LAD -ST elevations V4-V6 and new LBBB -Troponin 355 ->1188 -PCI w/ long RASHAD to LAD -Post intervention NSVT bolused with amiodarone -Lipid panel pending. Cont high dose atorvastatin. -Cont ASA and brilinta -TTE pending -Started on lisinopril and metoprolol -Diuresed with lasix x 2 due to elevated intracardiac pressure. -Cardiology following. Pulm: Current everyday smoky -Discussed importance of smoking cessation and resources offered -Patient wheezing on exam. Will order albuterol PRN GI: FEN -Initiate heart healthy diet : -No acute issues -Creatinine 0.89 -BUN 12 -Monitor renal function qam Heme: Thrombocytopenia unclear etiology -Plts 58 on admission -No hematological history -Consider peripheral smear and further workup. -Monitor CBC qam. Endo: Stress hyperglycemia; Diabetes Mellitus Type II -BG 323 -Initiate ICU insulin gtt -Hgba1c pending -It Security Consultant consulted. ID: Leukocytosis likely reactive in setting of acute [place] -WBC 20 -Afebrile -Monitor and culture as appropriate. Prophylaxis: -SCD for mechanical DVT prophylaxis -DVT chemoprophylaxis held at this time. -PP for GI prophylaxis Disposition: ICU for evaluation and management of anterolateral STEMI s/p PCI with ES to LAD. Patient is full code. Patient and updated at bedside by ICU provider on 03/09/2025. I have personally spent 45 minutes of critical care time in the direct management of this patient. This is a life/limb threatening event. This includes time spent evaluating patient, direct bedside care, chart review, placing orders, interpretation of diagnostic studies, discussion with consultants, patient, and/or family members regarding treatment decisions, as well as other required patient management activities. This time is exclusive of all separately billable procedures, and teaching time and separate from and in addition to any other critical care service time. Admission and Anticipated Discharge Date Admission Date: March 09, 2025 Results & Data Results & Data Vital Signs (Past 12 Hours) Vital Signs Pulse Resp BP Pulse Ox O2 Del Method 03/10/25 09:00 84 19 98 Room Air 03/10/25 08:18 102 H 20 96 03/10/25 07:09 122/94 03/10/25 07:00 98 H 17 96 Room Air 03/10/25 04:09 98 H 15 110/77 95 03/10/25 03:00 86 21 119/68 03/10/25 02:00 87 20 125/71 94 03/10/25 01:00 91 H 28 H 117/73 94 03/10/25 00:09 123/69 03/10/25 00:06 88 23 95 03/10/25 00:00 86 03/09/25 23:09 127/79 03/09/25 23:00 86 24 96 03/09/25 22:09 124/88 03/09/25 22:06 86 17 96 Room Air 03/09/25 21:50 88 03/09/25 21:09 137/89 03/09/25 21:09 82 18 Coding Diagnoses T2DM (type 2 diabetes mellitus) E11.9 HTN (hypertension) I10 ST elevation (STEMI) myocardial infarction I21.3 Chest pain R07.9 Acute [place] I21.9 Thrombocytopenia D69.6 Smoker F17.200
--- NOTE | 2025-03-10 09:50 | Cardiology Progress Note ---
Date of Service March 10, 2025 Assessment & Plan (1) Acute NE: Plan: --RASHAD to prox-mid LAD 03/09/2025 --60% distal LCx, 45% D2 2. HFrEF/ICM--EF 20-25%, LAD distribution WMA 3. Ventricular ectopy 4. Dyslipidemia 5. DM2 6. Class II obesity 7. Tobacco abuse Chest pain free. Troponin peaking and only modestly elevated. Hemodynamically and electrically stable. No congestion on exam. Post procedure labs stable No significant access site complications. 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 --Will repeat echo tomorrow to reassess LV function/rule out LV thrombus. If LV function unchanged we discussed LifeVest which she is agreeable to. --OK for transfer to telemetry today. Likely home tomorrow. Follow-up with me in 2 weeks. Cardiac rehab discussed. Admission and Anticipated Discharge Date Admission Date: March 09, 2025 Subjective Feeling well this morning. Slept well overnight. No chest pain, breathing comfortably. Tele reviewed -- no events. Review of Systems Review of Systems: All systems reviewed & are unremarkable except as noted in HPI & below Physical Exam Physical Exam: General: Comfortable HEENT: Sclerae anicteric Lungs: Clear to auscultation bilaterally, scant crackles at RT base Cardiac: Distant heart sounds, regular, no murmurs. Vascular: 2+ RT radial. Mild ecchymosis, no hematoma. No carotid bruits Abdomen: Soft, nontender Extremities: Well perfused, no peripheral edema Neuro: Nonfocal Psych: Alert orient x3, normal affect and mood Results & Data Vital Signs (Past 12 Hours) Vital Signs Pulse Resp BP Pulse Ox O2 Del Method 03/10/25 09:00 84 19 98 Room Air 03/10/25 08:18 102 H 20 96 03/10/25 07:09 122/94 03/10/25 07:00 98 H 17 96 Room Air 03/10/25 04:09 98 H 15 110/77 95 03/10/25 03:00 86 21 119/68 03/10/25 02:00 87 20 125/71 94 03/10/25 01:00 91 H 28 H 117/73 94 03/10/25 00:09 123/69 03/10/25 00:06 88 23 95 03/10/25 00:00 86 03/09/25 23:09 127/79 03/09/25 23:00 86 24 96 03/09/25 22:09 124/88 03/09/25 22:06 86 17 96 Room Air 03/09/25 21:50 88 PG Care Time/CCT Total # of Minutes Spent Total Time Spent with Patient: Total time spent is greater than 50% in coordination of care (as documented) at patient's floor/unit and/or counseling patient: Coding Level of Care Code 58084 SUB INP/OBS CARE 3/50MIN Diagnoses Acute NE I21.9
[2025-03-10] MEDS: METOPROLOL TARTRATE 25 MG TAB PO ONE (10:17)
[2025-03-10] MEDS ORDERED: PHARMACY GLYCEMIC MGMT CONSULT PRN (10:28)
[2025-03-10] MEDS ORDERED: LANTUS PER UNIT CHARGE SC STA ×2 (10:28→11:55)
[2025-03-10] MEDS: STOP ORDER ONE (11:54)
[2025-03-10] MEDS: INSULIN ASPART PER UNIT CHARGE SC SCH (12:01)
[2025-03-10] MEDS: LANTUS PER UNIT CHARGE SC STA (12:02)
--- NOTE | 2025-03-10 12:37 | Hospitalist Progress Note ---
Date of Service March 10, 2025 Assessment & Plan (1) ST elevation (STEMI) myocardial infarction: (2) Chest pain: (3) HTN (hypertension): (4) T2DM (type 2 diabetes mellitus): Plan This is a 60-year-old female who does not have a known past medical history prior to presentation who presented to ED with chest pain. Patient reports substernal, "heartburn," that started last evening and most of the night last night. #STEMI #New Onset HFrEF (EF 25%) #S/p Single RASHAD -echo revealed EF of 25% in setting of post STEMi -s/p LAD single RASHAD stent 03/09/2025 Plan: -continue ASA, High intensity atorvastatin, lisinopril and metoprolol tartrate. -continue protonix in post cath setting -started jardiance per cardiology -cardiology consulted, appreciate recs -repeat echo tomorrow -will need LifeVest at discharge, ICD consideration in 6 months if no EF recovery -likely discharge tomorrow #Hyperglycemia -Suspect T2DM -tobacco educator consult, pharmacy consult, appreciate recs #Thrombocytopenia -resolved #Tobacco abuse -strongly encourage cessation for risk factor reduction -start nicotine patch today I spent a total of 45 minutes in direct patient care, including [id number] time with the patient and/or family, reviewing medical records, ordering and reviewing diagnostic tests, and coordinating care with other healthcare providers. This time includes: history taking, physical examination, medical decision making, counseling, ECG interpretation, imaging interpretation, lab interpretation, orders, and education, excluding time spent in the performance of separately billed services. Admission and Anticipated Discharge Date Admission Date: March 09, 2025 Subjective Patient seen and examined at bedside. Patient doing well today. Discussed patients diagnoses, procedures, overall care plan. Appreciative of the update. Review of Systems Review of Systems: CONSTITUTIONAL: Patient denies fevers, chills, sweats and weight changes. EYES: Patient denies any visual symptoms. EARS, NOSE, AND THROAT: No difficulties with hearing. No symptoms of rhinitis or sore throat. CARDIOVASCULAR: Patient denies chest pains, palpitations, orthopnea and paroxysmal nocturnal dyspnea. RESPIRATORY: No dyspnea on exertion, no wheezing or cough. GI: No nausea, vomiting, diarrhea, constipation, abdominal pain, hematochezia or melena. : No urinary hesitancy or dribbling. No nocturia or urinary frequency. No abnormal urethral discharge. MUSCULOSKELETAL: No myalgias or arthralgias. NEUROLOGIC: No chronic headaches, no seizures. Patient denies numbness, tingling or weakness. PSYCHIATRIC: Patient denies problems with mood disturbance. No problems with anxiety. ENDOCRINE: No excessive urination or excessive thirst. DERMATOLOGIC: Patient denies any rashes or skin changes. Physical Exam Physical Exam: Gen: A&O 3 NAD HEENT: NCAT, EOMI, not icteric. External ears normal. No rhinorrhea. Moist mucous membranes. Neck: Supple, full range of motion, no observable masses, No meningeal sign. Lungs: No Respiratory distress. CV: RRR, no edema. Abdomen: Soft, nondistended, No rebound tenderness. MSK: No joint swelling, no redness. Skin: No rashes, petechiae, lesions. Normal color per patient. Neuro: Normal Gait, Grossly intact. Psych: Appropriate for situation. Results & Data Results & Data Vital Signs (Past 12 Hours) Vital Signs Pulse Resp BP Pulse Ox O2 Del Method 03/10/25 09:00 84 19 98 Room Air 03/10/25 08:18 102 H 20 96 03/10/25 07:09 122/94 03/10/25 07:00 98 H 17 96 Room Air 03/10/25 04:09 98 H 15 110/77 95 03/10/25 03:00 86 21 119/68 03/10/25 02:00 87 20 125/71 94 03/10/25 01:00 91 H 28 H 117/73 94 Laboratory Results -personally reviewed, WBC downtrending, mildly elevated alk phos likely in setting of STEMI Medications Administered Aspirin (Aspirin 81 Mg Ectab) [facility] Stop: 04/09/25 08:59 Last Admin: 03/10/25 07:54 Dose: 81 mg Documented By: DOMITILA Atorvastatin Calcium (Atorvastatin 40 Mg Tab) [facility] [place] Stop: 04/09/25 08:59 Last Admin: 03/10/25 07:54 Dose: 80 mg Documented By: DOMITILA Insulin Aspart (Insulin Aspart Per Unit Charge) 0 units SC ACHS [facility] Stop: 04/09/25 11:29 Last Admin: 03/10/25 12:01 Dose: 3 units Documented By: DOMITILA Co-signed By: RONDA Lisinopril (Lisinopril 5 Mg Tab) [facility] [place] Stop: 04/09/25 08:59 Last Admin: 03/10/25 07:54 Dose: 5 mg Documented By: DOMITILA Pantoprazole Sodium (Pantoprazole 40 Mg Tab) 40 mg PO [facility] Stop: 04/09/25 08:59 Last Admin: 03/10/25 07:54 Dose: 40 mg Documented By: DOMITILA Ticagrelor (Ticagrelor 90 Mg Tab) 90 mg PO BID [facility] Stop: 04/08/25 20:59 Last Admin: 03/10/25 10:17 Dose: 90 mg Documented By: Admin: 03/09/25 20:37 Dose: 90 mg Documented By: CONCETTA
--- NOTE | 2025-03-10 13:04 | Critical Care Progress Note ---
Date of Service March 10, 2025 Assessment & Plan (1) T2DM (type 2 diabetes mellitus): (2) HTN (hypertension): (3) ST elevation (STEMI) myocardial infarction: (4) Chest pain: (5) Acute NC: (6) Thrombocytopenia: (7) Smoker: Plan Michelle Dejesus is a 60-year-old female with no known past medical history who presented to [facility] on 03/09/2025 with complaints of chest pain and b/l arm tingling found to have ST elevations in V4-V6 with new LBBB s/p PCI with RASHAD to LAD. Neuro: -No acute issues -No head imaging at this time. -Monitor CV: Anteriolateral STEMI; Acute myocardial infarction s/p RASHAD to LAD -ST elevations V4-V6 and new LBBB -Troponin 355 ->1188 -PCI w/ long RASHAD to LAD -Post intervention NSVT bolused with amiodarone -Lipid panel Tchol 215, LDL 142, HDL 43, TG 149. Cont high dose atorvastatin. -Cont ASA and brilinta -TTE LV hypokinesis with EF 20-25%. RV WNL TAPSE > 1.5. -Started on lisinopril and metoprolol -Diuresed with lasix x 2 due to elevated intracardiac pressure. -Cardiology following. Pulm: Current everyday smoky -Discussed importance of smoking cessation and resources offered -Patient wheezing on exam. Will order albuterol PRN GI: FEN -Initiate heart healthy diet : -No acute issues -Creatinine/BUN stable -Monitor renal function qam Heme: -No acute issue -Monitor CBC qam Endo: Stress hyperglycemia; Diabetes Mellitus Type II -BG 122 this am -ICu insulin gtt transitioned subQ IV -Hgba1c 7.7 -Thermometer Maker consulted. ID: Leukocytosis likely reactive in setting of acute NC -WBC downtrending -Afebrile -Monitor and culture as appropriate. Prophylaxis: -SCD for mechanical DVT prophylaxis -DVT chemoprophylaxis held at this time. -PPI for GI prophylaxis Disposition: Downgraded this am will need continue evaluation and management of anterolateral STEMI s/p PCI with ES to LAD. Patient is full code. Patient and updated at bedside 03/10/2025. Admission and Anticipated Discharge Date Admission Date: March 09, 2025 Subjective "My chest pain is significantly improved." Patient subjectively states that her chest pain is improved. TTE showed significantly depressed LV function and hypokinesis with EF 20-25%. Patient diuresed with lasix x 2 in last 24 hours and net negative 1.4 liters. Patient started on GDMT. Insulin gtt transitioned to subq insulin. Review of Systems 2 Review of Systems: All systems reviewed & are unremarkable except as noted in HPI & below Physical Exam Physical Exam: VITALS: Reviewed. WEIGHT/BMI reviewed. GEN: Healthy appearing, well-developed, NAD. PSYCH: Good Judgment. AOx3. Normal memory, mood, and affect. HEENT -Head: NC/AT; -Eyes: PERRL, EOMI. No discharge or redn ess; -Ears: External ears are normal. Normal TMs. -Nose: Normal nares. -Mouth and throat: MMM. Normal gums, muc estela, palate,. Good dentition. NECK: Supple, with no masses. CV: RRR, no m/r/g. LUNGS: Clear in bilateral upper and lower lobes with some wheezing noted. Chest rise symmetrical, Breathing mildly labored. ABD: Soft, NT/ND, NBS, no masses or organomegaly. : N/A SKIN: Warm, well perfused. No skin rashes or abnormal lesions. MSK: No deformities, Normal gait. EXT: No clubbing, cyanosis, or edema. NEURO: Ambulating with no limitations. Normal muscle strength and tone. No focal deficits. Results & Data Results & Data Vital Signs (Past 12 Hours) Vital Signs Temp Pulse Resp BP Pulse Ox O2 Del Method 03/10/25 12:00 95 H 24 03/10/25 11:06 84 18 03/10/25 10:15 36.5 C 03/10/25 10:09 103/73 03/10/25 10:00 91 H 25 H 95 Room Air 03/10/25 09:09 106/73 03/10/25 09:09 85 19 03/10/25 09:00 84 19 98 Room Air 03/10/25 08:18 102 H 20 96 03/10/25 08:00 99 H 03/10/25 07:30 Room Air 03/10/25 07:09 122/94 03/10/25 07:00 98 H 17 96 Room Air 03/10/25 04:09 98 H 15 110/77 95 03/10/25 03:00 86 21 119/68 03/10/25 02:00 87 20 125/71 94 03/10/25 01:00 91 H 28 H 117/73 94 Critical Care Results & Data Vital Signs (Past 12 Hours) Vital Signs Temp Pulse Resp BP Pulse Ox O2 Del Method 03/10/25 12:00 95 H 24 03/10/25 11:06 84 18 03/10/25 10:15 36.5 C 03/10/25 10:09 103/73 03/10/25 10:00 91 H 25 H 95 Room Air 03/10/25 09:09 106/73 03/10/25 09:09 85 19 03/10/25 09:00 84 19 98 Room Air 03/10/25 08:18 102 H 20 96 03/10/25 08:00 99 H 03/10/25 07:30 Room Air 03/10/25 07:09 122/94 03/10/25 07:00 98 H 17 96 Room Air 03/10/25 04:09 98 H 15 110/77 95 03/10/25 03:00 86 21 119/68 03/10/25 02:00 87 20 125/71 94 03/10/25 01:00 91 H 28 H 117/73 94 Lab & Micro Results (Past 24 Hours) RBC 4.97 M/uL (4.20-5.40) 03/10/25 WBC 16.21 K/ul (4.8-10.8) H 03/10/25 Hgb 14.6 g/dl (12.0-16.0) 03/10/25 Hct 42.3 % (37.0-47.0) 03/10/25 MCV 85.1 fL (80.0-100.0) 03/10/25 MCH 29.4 pg (25.0-34.0) 03/10/25 MCHC 34.5 g/dL (32.0-36.0) 03/10/25 RDW Standard Deviation 42.1 fL (36.4-46.3) 03/10/25 RDW Coefficient of Variation 13.5 % (11.5-14.5) 03/10/25 Plt Count 194 K/uL (130-400) 03/10/25 MPV 10.5 fL (9.4-12.4) 03/10/25 Neutrophils (%) (Auto) 65.3 % 03/10/25 Lymphocytes (%) (Auto) 24.5 % 03/10/25 Monocytes # (Auto) 1.42 K/uL (0.11-0.59) H 03/10/25 Eosinophils # (Auto) 0.11 K/uL (0.00-0.50) 03/10/25 Immature Granulocyte % (Auto) 0.4 % 03/10/25 Neutrophils # (Auto) 10.59 K/uL (1.40-6.50) H 03/10/25 Lymphocytes # (Auto) 3.97 K/uL (1.20-3.40) H 03/10/25 Monocytes # (Auto) 1.42 K/uL (0.11-0.59) H 03/10/25 Eosinophils # (Auto) 0.11 K/uL (0.00-0.50) 03/10/25 Basophils # (Auto) 0.05 K/uL (0.00-0.20) 03/10/25 Immature Granulocyte # (Auto) 0.07 K/uL (0.01-0.20) 5 Na 138 mmol/L (136-145) 03/10/25 K 3.5 mmol/L (3.5-5.1) 03/10/25 Cl 103 mmol/L (98-107) 03/10/25 CO2 26 mmol/L (21-32) 03/10/25 Anion Gap 9 (3-11) 03/10/25 BUN 12 mg/dl (6-23) 03/10/25 Creatinine 0.90 mg/dl (0.6-1.2) 03/10/25 BUN/Creatinine Ratio 13.3 (10-20) 03/10/25 Glu 122 mg/dl (70-99(Fasting)) H 03/10/25 Ca 9.2 mg/dl (8.6-10.3) 03/10/25 Mg 1.8 mg/dl (1.7-2.4) 03/10/25 04:37 Calcium Level 9.2 mg/dl (8.6-10.3) 03/10/25 04:37 Diagnostic Findings (Past 24 Hours) Chest X-Ray 03/09/25 12:54 XR chest 1V portable CLINICAL HISTORY: sob COMPARISON STUDY: None FINDINGS: Heart size and pulmonary vasculature are normal. Lungs are hyperexpanded. No consolidation or pleural effusion seen. No pneumothorax. IMPRESSION: No pneumonia seen. ACT 112: Negative or not required by law. Electronically signed by: Tj Knox M.D. 03/09/2025 1:23 PM I & O Totals 24 Hours 03/09/25 03/10/25 03/11/25 06:59 06:59 06:59 Intake Total 306.013 / 306.013 250.266 / 250.266 Output Total 1725 / 1725 Balance -1418.987 / -1418.987 250.266 / 250.266 Cumulative 03/09/25 09:56 thru 03/10/25 12:35 Intake Total 556.279 Output Total 1725 Balance -1168.721 RT Ventilator Mngmt (Last Documented) Ventilator Ordered Settings Respiratory Rate 24 03/10/25 12:00 Fraction of Inspired Oxygen 2 03/09/25 12:36 Ventilator - PT Measurements Respiratory Rate 24 Coding Level of Care Code 16654 SUB INP/OBS CARE 2/35MIN Diagnoses T2DM (type 2 diabetes mellitus) E11.9 HTN (hypertension) I10 ST elevation (STEMI) myocardial infarction I21.3 Chest pain R07.9 Acute NC I21.9 Thrombocytopenia D69.6 Smoker F17.200
[2025-03-10] MEDS: NICOTINE 21 MG/24 HR TDSY TD SCH (13:19)
--- NOTE | 2025-03-10 14:31 | Electrocardiogram Report ---
Test Reason : Blood Pressure : */* mmHG Vent. Rate : 99 BPM Atrial Rate : 99 BPM P-R Int : 144 ms QRS Dur : 130 ms QT Int : 438 ms P-R-T Axes : 73 7 160 degrees QTcB Int : 562 ms Normal sinus rhythm Non-specific intra-ventricular conduction block Minimal voltage criteria for LVH, may be normal variant T wave abnormality, consider anterolateral ischemia Abnormal ECG When compared with ECG of 09-Mar-2025 11:43, T wave inversion now evident in Anterior leads QT has lengthened Confirmed by Michael Davidson ([id number]) on 03/10/2025 2:31:04 PM Referred By: REFERRED SELF Confirmed By: Michael Davidson
--- NOTE | 2025-03-10 14:40 | Pharmacy Report ---
Pharmacy Glycemic Short Note 2 - Date of Service March 10, 2025 - Glycemic Short BSG Results (Last 24 hours): 03/09/25 03/09/25 03/09/25 14:29 15:22 16:30 Glucose POC Glucose 291 H 252 H 199 H 03/09/25 03/09/25 03/09/25 17:19 18:25 19:16 Glucose POC Glucose 190 H 176 H 182 H 03/09/25 03/09/25 03/09/25 20:37 21:34 22:31 Glucose POC Glucose 159 H 148 H 174 H 03/09/25 03/10/25 03/10/25 23:27 00:27 01:24 Glucose POC Glucose 134 H 134 H 118 H 03/10/25 03/10/25 03/10/25 02:38 04:37 04:39 Glucose 122 H POC Glucose 110 H 121 H 03/10/25 03/10/25 03/10/25 06:46 07:23 10:14 Glucose POC Glucose 141 H 150 H 177 H 03/10/25 11:31 Glucose POC Glucose 106 H OUTPATIENT ANTIDIABETIC REGIMEN: * Not on nay outpatient medications * A1c: 7.7% 03/10/25 ASSESSMENT: * Patient presented with acute UT and hyperglycemia initially requiring an insulin infusion. * Patient denies any history of diabetes and does not take anything at home * The insulin infusion was stopped ~1130 this morning (previously running at 2 units/hr). * Patient was given a conservative one time dose of Lantus at time of drip transition and started on a weight based moderate stress novolog scale. PLAN FOR INPATIENT GLYCEMIC CONTROL: * Hold outpatient oral diabetes medications * Basal insulin * Lantus 10 units SQ X 1 * Bolus insulin * NovoLog per scale ACHS or Q6hrs while NPO * Goal Range: Low 110 mg/dL - High 140 mg/dL * Correction Factor: 25 mg/dL/unit * Nutritional / Prandial insulin per carb ratio of 1 unit per 8 grams CHO consumed
[2025-03-10] MEDS: METOPROLOL TARTRATE 25 MG TAB PO SCH (21:45)
[2025-03-11 07:22] VITALS: RESP 17; TEMP 97.9
[2025-03-11 08:16] LABS: Hematocrit (blood only) 42.6 % (37.0-47.0); Hemoglobin 14.0 g/dl (12.0-16.0); Immature Granulocytes # (auto) 0.04 K/uL (0.01-0.20); Immature Granulocytes % (auto) 0.3 %; Mean Corpuscular Hemoglobin 28.3 pg (25.0-34.0); Mean Corpuscular Volume 86.2 fL (80.0-100.0); Platelet Count 210 K/uL (130-400); RDW Standard Deviation 42.3 fL (36.4-46.3); Red Blood Count 4.94 M/uL (4.20-5.40); White Blood Count 12.53 K/ul (4.8-10.8)
[2025-03-11] MEDS: REMOVE NICODERM PATCH SCH (08:26)
[2025-03-11 08:37] LABS: Anion Gap 9.0 (3-11); Blood Urea Nitrogen 16.0 mg/dl (6-23); Calcium 9.2 mg/dl (8.6-10.3); Carbon Dioxide 23.0 mmol/L (21-32); Chloride 103.0 mmol/L (98-107); Creatinine Clr Calc Pharmacy 67.6 ml/min; Glucose 148.0 mg/dl (70-99(Fasting)); Magnesium 1.8 mg/dl (1.7-2.4); Potassium 4.5 mmol/L (3.5-5.1); Sodium 135.0 mmol/L (136-145)
[2025-03-11] MEDS: LANTUS PER UNIT CHARGE SC SCH (08:45)
[2025-03-11] MEDS: EMPAGLIFLOZIN 10 MG TAB PO SCH (08:45)
[2025-03-11 11:09] VITALS: BP 125/73; O2SAT 97
--- NOTE | 2025-03-11 11:35 | Cardiology Progress Note ---
Date of Service March 11, 2025 Assessment & Plan (1) Acute HI: Plan: --RASHAD to prox-mid LAD 03/09/2025 --60% distal LCx, 45% D2 2. HFrEF/ICM--EF 20-25%, LAD distribution WMA 3. Ventricular ectopy 4. Dyslipidemia 5. DM2 6. Class II obesity 7. Tobacco abuse 8. Small pericardial effusion. Chest pain free. Hemodynamically and electrically stable. Reviewed repeat echo today -- LV function improved. LVEF ~40%. No LV thrombus. Does have small pericardial effusion. No signs of tamponade. From a cardiac standpoint OK with discharge today. With improved LV function, modest trop elevation and no significant ectopy on tele feel patient can be safely discharged without LifeVest. Home on: --DAPT with ASA/Ticagrelor --Toprol XL 50mg daily --Lisinopril 5mg --Empagliflozin 10mg --Atorvastatin 80mg --Again discussed smoking cessation. Cardiac rehab previously discussed. Follow-up with me in 1-2 weeks. Repeat echo as an outpatient to follow pericardial effusion. Admission and Anticipated Discharge Date Admission Date: March 09, 2025 Subjective Feeling well. No chest pain. No other new concerns this morning. Tele reviewed -- no events. Intermittent PVCs, no runs. Review of Systems Review of Systems: All systems reviewed & are unremarkable except as noted in HPI & below Physical Exam Physical Exam: General: Comfortable HEENT: Sclerae anicteric Lungs: Clear to auscultation bilaterally Cardiac: Distant heart sounds, regular, no murmurs. Vascular: 2+ RT radial. Mild ecchymosis, no hematoma. No carotid bruits Abdomen: Soft, nontender Extremities: Well perfused, no peripheral edema Neuro: Nonfocal Psych: Alert orient x3, normal affect and mood Results & Data Vital Signs (Past 12 Hours) Vital Signs Temp Pulse Resp BP Pulse Ox O2 Del Method 03/11/25 11:08 97.9 F 87 17 125/73 97 Room Air 03/11/25 07:21 97.9 F 95 H 17 119/74 96 Room Air 03/11/25 02:50 97.7 F 82 16 100/62 96 Room Air PG Care Time/CCT Total # of Minutes Spent Total Time Spent with Patient: Total time spent is greater than 50% in coordination of care (as documented) at patient's floor/unit and/or counseling patient: Coding Level of Care Code 24529 SUB INP/OBS CARE MIN Diagnoses Acute HI I21.9
--- NOTE | 2025-03-11 11:57 | Discharge Summary ---
Discharge Summary Date of Service March 11, 2025 Principal Dx & Hospital Course #1 = Principal Diagnosis (1) ST elevation (STEMI) myocardial infarction: (2) Chest pain: (3) HTN (hypertension): (4) T2DM (type 2 diabetes mellitus): Plan This is a 60-year-old female who does not have a known past medical history prior to presentation who presented to ED with chest pain. Patient reports substernal, "heartburn," that started last evening and most of the night last night. #STEMI #New Onset HFrEF (EF 25%) #S/p Single RASHAD -echo revealed EF of 25% in setting of post STEMi -s/p LAD single RASHAD stent 03/09/2025 Plan: -continue ASA, High intensity atorvastatin, lisinopril and metoprolol tartrate. -continue protonix in post cath setting -started jardiance per cardiology -cardiology consulted, appreciate recs -repeat echo tomorrow -will need LifeVest at discharge, ICD consideration in 6 months if no EF recovery -likely discharge tomorrow #Hyperglycemia -Suspect T2DM -diabetic educator consult, pharmacy consult, appreciate recs #Thrombocytopenia -resolved #Tobacco abuse -strongly encourage cessation for risk factor reduction -start nicotine patch today I spent a total of 45 minutes in direct patient care, including [id number]-wi-[id number] time with the patient and/or family, reviewing medical records, ordering and reviewing diagnostic tests, and coordinating care with other healthcare providers. This time includes: history taking, physical examination, medical decision making, counseling, ECG interpretation, imaging interpretation, lab interpretation, orders, and education, excluding time spent in the performance of separately billed services. Notes For Next Care Provider This is a 60-year-old female who does not have a known past medical history prior to presentation who presented to ED with chest pain. Found to have STEMI, taken to laboratory tech with LAD RASHAD stent placed x1, admitted to ICU for further monitoring. POst op course uncomplicated. Repeat echo revealed recovering EF of 40% from 25%. GDMT iniated. Life Vest initially ordered given low EF post cath but repeat EF outside of need for Life Vest. On 03/11/2025 patient medically stable for discharge from cardiology and medicine perspective. To do: [ ] titrate GDMT outpatient [ ] repeat echo in 6 months [ ] encourage tobacco cessation [ ] encourage cardiac rehab Medication Changes From Visit -see below Admission HPI Per Admitting Provider This is a 60-year-old female who does not have a known past medical history prior to presentation who presented to ED with chest pain. Patient reports substernal, "heartburn," that started last evening and most of the night last night. When she woke up this morning she was still having some chest discomfort. She opted to go to work and while at work her chest pain became significantly worse and she became short of breath and diaphoretic. At this time 911 was called. She was made a heart alert upon arrival. She received 324 mg of aspirin, 150 mcg of fentanyl and 900 cc of IV fluid prehospital. Prehospital EKG with what appeared to be new left bundle branch block. She was seen and evaluated by interventional cardiology in ED and taken to Cardiac Freight Trucker. She received Brilinta and IV heparin in ED. she was found to have 100% acute mid LAD lesion at the bifurcation with large second diagonal treated with a single drug-eluting stent. Postcardiac cath was complicated by hypertension treating with IV lasix. During my evaluation in the ICU pt reports continued SOB. She is requiring oxygen. She also has mild residual chest pain. Denies f/c/s, dizziness, lightheaded, n/v/abd pain. Discharge Exam Gen: A&O 3 NAD HEENT: NCAT, EOMI, not icteric. External ears normal. No rhinorrhea. Moist mucous membranes. Neck: Supple, full range of motion, no observable masses, No meningeal sign. Lungs: No Respiratory distress. CV: RRR, no edema. Abdomen: Soft, nondistended, No rebound tenderness. MSK: No joint swelling, no redness. Skin: No rashes, petechiae, lesions. Normal color per patient. Neuro: Normal Gait, Grossly intact. Psych: Appropriate for situation. Updated Medication List Medication Instructions Recorded Confirmed Type aspirin 81 mg tablet,delayed 81 mg PO QAM #30 tabs 03/10/25 Rx release atorvastatin 40 mg tablet 80 mg (2 x 40 mg) PO QAM #30 tabs 03/10/25 Rx blood sugar diagnostic (OneTouch #100 ea 03/10/25 Rx Verio test strips) blood-glucose meter (OneTouch #1 ea 03/10/25 Rx Verio Flex Meter) empagliflozin 10 mg tablet 10 mg PO DAILY #30 tabs 03/10/25 Rx (Jardiance) lancets 33 gauge (OneTouch Delica #100 ea 03/10/25 Rx Plus Lancet) lisinopril 5 mg tablet 5 mg PO QAM #30 tabs 03/10/25 Rx metoprolol succinate 50 mg 50 mg PO DAILY #30 tabs 03/10/25 Rx tablet,extended release 24 hr nicotine 21 mg/24 hr daily 1 patch transdermal QAM #28 ea 03/10/25 Rx transdermal patch (Nicoderm CQ) pantoprazole 40 mg tablet,delayed 40 mg PO QAM #30 tabs 03/10/25 Rx release ticagrelor 90 mg tablet (Brilinta) 90 mg PO BID #60 tabs 03/10/25 Rx Hospital Stay Data Consultations 03/09/25 10:29 Consult Cardiology Stat ED Decision to Admit Stat 03/09/25 11:37 Consult Cardiology Routine 03/09/25 13:18 Consult Pie Dough Roller Routine Procedures Performed Operation Date: 03/09/25 10:15 Actual Procedures p Cineradiography w/Routine Exam - Williams Cárdenas MD p Aspiration/PCI w/RASHAD for Stemi - Williams Cárdenas MD s IVUS Coronary Single Vessel - Williams Cárdenas MD Diagnostic Imagining Performed 03/09/25 10:15 CL Cath Imgs for PACS use only Stat 03/09/25 11:36 CL IVUS Coronary Single Vessel Routine Pending Results Patient Have Any Pending Studies at Discharge: No Discharge Instructions Given to Patient (Per Discharging Provider) 1. Please follow up with PCP and cardiology. 2. Please take medications as prescribed. 3. Please quit smoking tobacco, utilize nicotine patches as needed. 4. Please utilize cardiac rehab! Total Time Total Time Spent Total Time Spent (In Minutes): I spent a total of 35 minutes in direct patient care, including [id number] time with the patient and/or family, reviewing medical records, ordering and reviewing diagnostic tests, and coordinating care with other healthcare providers. This time includes: history taking, physical examination, medical decision making, counseling, ECG interpretation, imaging interpretation, lab interpretation, orders, and education, excluding time spent in the performance of separately billed services.
[2025-03-11 12:45] VITALS: PULSE 84
--- NOTE | 2025-03-11 14:17 | XCELERA ---
[id number]
--- NOTE | 2025-03-12 15:01 | Electrocardiogram Report ---
Test Reason : Blood Pressure : */* mmHG Vent. Rate : 99 BPM Atrial Rate : 99 BPM P-R Int : 144 ms QRS Dur : 130 ms QT Int : 438 ms P-R-T Axes : 73 7 160 degrees QTcB Int : 562 ms Normal sinus rhythm Left bundle branch block Abnormal ECG When compared with ECG of 10-Mar-2025 05:58, No significant change was found Confirmed by Uriel Jorge ([id number]) on 03/12/2025 3:01:04 PM Referred By: REFERRED SELF Confirmed By: Uriel Jorge
== END 2025-03-11 13:20 | disposition home or self-care (01) | DRG 321 ==
LOC: ED 10:11 → CC 10:24 → 1E 10:24 → SUATTDRO 10:30 → 2E 03-10 13:08